=== PATIENT | female | born 1995 | race Caucasian/White ===

== ENCOUNTER 2017-07-09 01:02 | Outpatient (CLI) | payer SELFPAY ==
[~2017-07-09] VITALS: Ht 177.8 cm; Wt 101.7 kg
[2017-07-09 02:36] VITALS: BP 122/66
== END 2017-07-09 05:15 | disposition home or self-care (01) ==
LOC: M LDO 01:02
PROVIDERS: ATTEND Obstetrics & Gynecology
DX: O26.893 Other specified pregnancy related conditions, third trimester (principal); Z3A.29 29 weeks gestation of pregnancy; N89.8 Other specified noninflammatory disorders of vagina

== ENCOUNTER 2017-09-13 06:56 | Inpatient (IN) | payer BC, OTHER ==
[2017-09-13] VITALS (10 sets, daily range): BP systolic 110–131; BP diastolic 58–70
[~2017-09-13] VITALS: Ht 172.7 cm; Wt 104.3 kg
[~2017-09-13 06:56] MED LIST: PRENTAB55 PO
[2017-09-13] MEDS ORDERED: LACTATED RINGER'S 1000 ML IV ONE (07:00)
[2017-09-13] MEDS ORDERED: BICITRA 30ML SOLN UDC PO ONE (07:00)
[2017-09-13] MEDS ORDERED: LR 1,000 ML IV SCH ×2 (07:30→10:00)
[2017-09-13] MEDS ORDERED: CLINDAMYCIN 900 MG/50 ML PREMIX BAG As Ordered ONE (07:44)
[2017-09-13 07:45] LABS: MEAN CORPUSCULAR HGB CONC 34.1 g/dl (32.0-36.5); PLATELET COUNT, AUTOMATED 193 10^3/uL (150-450); WHITE BLOOD COUNT 8.5 10^3/uL (4.0-10.0)
[2017-09-13] MEDS ORDERED: GENTAMICIN 150 MG in D5W 50 ML IV ONE (08:00)
[2017-09-13] MEDS ORDERED: CLINDAMYCIN 600 MG in APPROPRIATE DILUENT 1 EA IV ONE (08:00)
[2017-09-13] MEDS ORDERED: CLINDAMYCIN 900 MG in APPROPRIATE DILUENT 1 EA IV ONE (08:00)
[2017-09-13] MEDS ORDERED: ONDANSETRON 4MG/2ML VIAL (J2405) IV PRN ×3 (08:49→10:00)
[2017-09-13] MEDS ORDERED: METOCLOPRAMIDE INJ 10MG/2ML VIAL (J2765) IV PRN ×2 (08:49→10:00)
[2017-09-13] MEDS ORDERED: NALOXONE INJ 0.4 MG/1 ML VIAL (J2310) IV PRN ×2 (08:49)
[2017-09-13] MEDS ORDERED: NALBUPHINE HCL 10 MG/ML AMP (J2300) IV PRN (08:49)
[2017-09-13] MEDS: PRENATAL VITAMINS CHEWABLE TABLET PO SCH (09:00)
[2017-09-13] MEDS ORDERED: MORPHINE PRES-FREE INJ 10 MG/10 ML VIAL (J2274) As Ordered ONE (09:20)
[2017-09-13] MEDS ORDERED: MIDAZOLAM INJ 2 MG/2 ML VIAL (J2250) As Ordered ONE (09:20)
[2017-09-13] MEDS ORDERED: KETOROLAC 60 MG/2 ML VIAL (J1885) As Ordered ONE (09:22)
[2017-09-13] MEDS ORDERED: ONDANSETRON 4MG/2ML VIAL (J2405) As Ordered ONE (09:22)
[2017-09-13] MEDS ORDERED: ePHEDrine SULFATE 25 MG/5 ML(5MG/ML) SYRINGE As Ordered ONE (09:22)
[2017-09-13] MEDS ORDERED: OXYTOCIN INJ 10 UNITS/ML VIAL (J2590) As Ordered ONE (09:22)
[2017-09-13] MEDS ORDERED: PHENYLephrine HCL 500 MCG/5 ML (100MCG/ML) SYRINGE (J2370) As Ordered ONE (09:22)
[2017-09-13] MEDS ORDERED: PERCOCET 5MG/325MG TAB PO PRN ×2 (09:45→10:00)
[2017-09-13] MEDS ORDERED: RHOGAM 300 MCG (1500 IU) INJ (J2790) IM SCH (10:00)
[2017-09-13] MEDS ORDERED: OXYTOCIN DRIP 30 UNITS in APPROPRIATE DILUENT 1 EA IV ONE (10:00)
[2017-09-13] MEDS ORDERED: fentaNYL 100 MCG/2 ML INJECTION (J3010) IV PRN (10:00)
[2017-09-13] MEDS: LR 1,000 ML IV SCH ×2 (10:00→18:00)
[2017-09-13] MEDS ORDERED: MEASLES,MUMPS,RUBELLA VACCINE INJ (MMR-II) (90707) SC SCH (10:00)
[2017-09-13] MEDS: KETOROLAC 30 MG/ML VIAL (J1885) IV SCH ×3 (16:00→23:57)
--- NOTE | 2017-09-13 17:34 | REP ---
LEFT BREAST ULTRASOUND: 09/13/2017 Clinical history: Palpable areas upper outer quadrant left breast from 1 - 2 o'clock position. The patient had a section this morning. Breasts are engorged and lumps were noted. After she breast fed they apparently disappeared and she now appears in the ultrasound suite for breast ultrasound. Sonographic evaluation of the area of concern in the 1 - 2-o'clock position upper outer quadrant left breast showed normal heterogeneous echogenic breast tissue without underlying mass, architectural distortion, cyst or other fluid collection. Some mildly dilated ducts are noted which are entirely appropriate. Impression: 1. No breast ultrasound abnormalities in the upper outer quadrant in the region where some lumps were noted at earlier today. Those lumps apparently disappeared when she breast fed. There is no underlying pathology or abnormality on ultrasound in the area of previous concern. Signed by Arnulfo Dueñas MD 09/13/2017 07:09 P
[2017-09-14 02:35] VITALS: BP 115/55
[2017-09-14] MEDS: KETOROLAC 30 MG/ML VIAL (J1885) IV SCH ×3 (03:38→10:27)
[2017-09-14 06:00] VITALS: BP 116/61
[2017-09-14 06:48] LABS: MEAN CORPUSCULAR HEMOGLOBIN 31.4 pg (27.0-33.0); MEAN CORPUSCULAR HGB CONC 33.2 g/dl (32.0-36.5); MEAN CORPUSCULAR VOLUME 94.5 fl (80.0-96.0); PLATELET COUNT, AUTOMATED 160 10^3/uL (150-450); RED CELL DISTRIBUTION WIDTH 12.9 % (11.5-14.5); WHITE BLOOD COUNT 8.7 10^3/uL (4.0-10.0)
[2017-09-14] MEDS ORDERED: ADACEL/BOOSTRIX VACCINE (DIPHTH/PERTUSS/ACELL/TETANUS)0.5ML SYR (90715) IM ONE (09:00)
[2017-09-14] MEDS ORDERED: INFLUENZA QUADRIVALENT PF VACCINE 0.5ML SYRINGE (90686) IM ONE (09:00)
[2017-09-14] MEDS: PRENATAL VITAMINS CHEWABLE TABLET PO SCH (09:11)
[2017-09-14 10:00] VITALS: BP 116/59
[2017-09-14] MEDS: DOCUSATE SODIUM 100 MG CAP PO SCH ×2 (10:27→20:36)
[2017-09-14] MEDS: SIMETHICONE 80 MG CHEW TAB PO PRN ×2 (10:28→16:01)
[2017-09-14] MEDS: IBUPROFEN 800 MG TAB PO SCH ×2 (11:42→19:50)
--- NOTE | 2017-09-14 12:07 | RO ---
DATE OF OPERATION: 09/13/2017 PREOPERATIVE DIAGNOSES: 39 weeks, prior (C) section times two. POSTOPERATIVE DIAGNOSES: 39 weeks, prior section times two. PROCEDURE: Repeat low transverse section. SURGEON: Kevin Strickland MD ALCOHOL RUBBER: Juju Pierre ANESTHESIA: Spinal. ESTIMATED BLOOD LOSS: 500 mL. URINE OUTPUT: 100 mL. INTRAVENOUS (IV) FLUIDS: 1855 mL. FINDINGS: 3250-gram or 7-pound 3-ounce female , scores 7 and 8, in the vertex position. 4 cm peritoneal window in the lower uterine segment with no myometrium present. Normal fallopian tubes and ovaries. DESCRIPTION OF PROCEDURE: Operative summary: The patient taken the operating room, where spinal anesthesia was induced. She was prepped and draped in sterile fashion in the supine position. A Marlow catheter was placed. A Pfannenstiel skin incision was made with the scalpel and carried through to the fascia. The fascia was nicked and extended. The fascia was dissected off the rectus muscles. The peritoneum was entered. A 4 cm x 4 cm peritoneal window was quickly noted in the lower uterine segment. The fetus could be seen through this window. There was no myometrium present. The window was opened, and the uterine incision was extended. Clear fluid was noted. The was delivered from the vertex position without difficulty. The cord was doubly clamped and cut. The was handed off to the awaiting nurses. The placenta was expressed. The uterus was exteriorized and cleared of clots and debris. The uterine incision was closed with 0 Vicryl in a running locked fashion. Two figure-of-8 sutures were placed for hemostasis. Due to the extremely thin nature of the lower uterine segment, it was not possible to place a second layer in the hysterotomy incision. The uterus was placed back into the abdominal cavity. The peritoneum was closed with 2-0 Vicryl in a running fashion. The fascia was closed with 0 Vicryl in a running fashion. The deep layer was irrigated and closed with 2-0 chromic. The skin was closed with 4-0 Monocryl subcuticular sutures. Sponge, instrument, and needle counts were correct.
[2017-09-14 14:00] VITALS: BP 111/64
[2017-09-14] MEDS ORDERED: OXYC1TAB23 PO (15:46)
[2017-09-14] MEDS: PERCOCET 5MG/325MG TAB PO PRN ×2 (16:01→20:36)
[2017-09-14 18:00] VITALS: BP 120/65
[2017-09-14 22:03] VITALS: BP 132/56
[2017-09-15] MEDS: IBUPROFEN 800 MG TAB PO SCH (03:25)
[2017-09-15 03:30] VITALS: BP 128/72
[2017-09-15] MEDS: PERCOCET 5MG/325MG TAB PO PRN ×2 (04:06→09:25)
[2017-09-15 06:25] VITALS: BP 121/59
[2017-09-15] MEDS ORDERED: ADACEL/BOOSTRIX VACCINE (DIPHTH/PERTUSS/ACELL/TETANUS)0.5ML SYR (90715) IM ONE (09:00)
[2017-09-15] MEDS ORDERED: INFLUENZA QUADRIVALENT PF VACCINE 0.5ML SYRINGE (90686) IM ONE (09:00)
[2017-09-15] MEDS: PRENATAL VITAMINS CHEWABLE TABLET PO SCH (09:25)
[2017-09-15] MEDS: DOCUSATE SODIUM 100 MG CAP PO SCH (09:25)
[2017-09-15] MEDS ORDERED: IBUP-1114 PO (09:27)
--- NOTE | 2017-09-16 10:22 | DSES ---
DATE OF ADMISSION: 09/13/2017 DATE OF DISCHARGE: 09/15/2017 HISTORY: 22-year-old 3, para 2 female at 39 and 0/7 weeks gestation, who presents for repeat section. course was unremarkable. She has had two prior sections. HOSPITAL COURSE: The patient was admitted on 09/13/2017 for scheduled section. The procedure was without complication for a 7 pounds 3 ounce female . Of note, a 4 cm x 4 cm peritoneal window was noted in the lower uterine segment at the time of surgery. Her postoperative course was unremarkable. She had adequate return of bladder and bowel function. She was deemed stable for discharge on postoperative day #2. ADMISSION DIAGNOSIS: 1. at term. 2. Prior section times two. DISCHARGE DIAGNOSIS: Delivered. PROCEDURE: Repeat low transverse section. DISPOSITION: The patient is to followup with Dr. Strickland in 2 weeks. Instructions reviewed.
== END 2017-09-15 12:40 | disposition home or self-care (01) | DRG 540 ==
LOC: M LDI 06:56 → M OBS 11:28
PROVIDERS: ADMIT Specialist; ATTEND Specialist
PROC: 10D00Z1 Extraction of Products of Conception, Low, Open Approach (ICD-10-PCS; principal; 2017-09-13 08:30)
DX: O34.211 Maternal care for low transverse scar from previous cesarean delivery (principal); Z37.0 Single live birth; Z3A.39 39 weeks gestation of pregnancy

== ENCOUNTER 2017-09-18 22:55 | Emergency (ER) | payer BC, OTHER ==
[~2017-09-18] VITALS: Ht 172.7 cm; Wt 100.0 kg
[~2017-09-18 22:55] MED LIST changes: +IBUP-1114 PO; +OXYC1TAB23 PO
[2017-09-19 00:43] VITALS: BP 131/78
== END 2017-09-19 00:59 | disposition home or self-care (01) ==
LOC: M ED 22:55
DX: Z48.89 Encounter for other specified surgical aftercare (principal); Z88.1 Allergy status to other antibiotic agents

== ENCOUNTER → 2017-09-20 | Outpatient (REF) | payer OTHER | LOC: M LAB REF 12:55 | PROVIDERS: ATTEND Obstetrics & Gynecology | DX: R30.0 Dysuria (principal) ==

== ENCOUNTER 2018-10-26 21:39 | Emergency (ER) | payer BC, OTHER ==
[~2018-10-26] VITALS: Ht 175.3 cm; Wt 90.0 kg
[2018-10-26 22:30] LABS: BASO % 0.4 % (0.0-1.0); EOS # 0.1 10^3/uL (0.0-0.50); EOS % 1.4 % (0.0-3.0); HEMATOCRIT 39.5 % (36.0-47.0); LYMPH # 2.4 10^3/uL (1.5-6.5); LYMPH % 48.2 % (24.0-44.0); MEAN CORPUSCULAR HEMOGLOBIN 30.1 pg (27.0-33.0); MEAN CORPUSCULAR HGB CONC 32.9 g/dl (32.0-36.5); MEAN CORPUSCULAR VOLUME 91.4 fl (80.0-96.0); MONO # 0.4 10^3/uL (0.0-0.8); MONO % 7.1 % (0.0-5.0); NEUTROPHILS # 2.1 10^3/uL (1.8-7.7); NEUTROPHILS % 42.7 % (36.0-66.0); PLATELET COUNT, AUTOMATED 216 10^3/uL (150-450); RED BLOOD COUNT 4.32 10^6/uL (4.00-5.40)
[2018-10-26 22:52] LABS: BLOOD UREA NITROGEN 16 MG/DL (7-18); CALCIUM LEVEL 8.6 MG/DL (8.5-10.1); CARBON DIOXIDE LEVEL 22 MEQ/L (21-32); CHLORIDE LEVEL 109 MEQ/L (98-107); CPK CREATINE PHOSPHOKINASE 183 U/L (26-192); CREATININE FOR GFR 0.97 MG/DL (0.55-1.30); GLOMERULAR FILTRATION RATE > 60.0 (>60); GLUCOSE, FASTING 79 MG/DL (70-100); MB/CK RELATIVE INDEX 0.98 (< OR =4); POTASSIUM SERUM 3.8 MEQ/L (3.5-5.1); SODIUM LEVEL 141 MEQ/L (136-145); TROPONIN I < 0.02 NG/ML (< 0.10)
[2018-10-26] MEDS ORDERED: KETOROLAC 30 MG/ML VIAL (J1885) IV ONE (23:00)
[2018-10-26] MEDS ORDERED: ALBUTEROL 90 MCG/ACT 8GM HFA INHALER INH ONE (23:15)
[2018-10-27 00:04] VITALS: BP 117/58
--- NOTE | 2018-10-27 03:50 | REP ---
Clinical: Acute left chest pain . Comparison: None . Technique: PA and lateral. Findings: The mediastinum and cardiac silhouette are normal. The lung fuentes are clear and without acute consolidation, effusion, or pneumothorax. The skeletal structures are intact and normal. Impression: 1. No acute cardiopulmonary process. Electronically Signed by Nick Camlio MD 10/27/2018 03:41 A
--- NOTE | 2018-10-27 06:36 | ECGEPIP ---
Stationary ECG Study 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
== END 2018-10-27 00:08 | disposition home or self-care (01) ==
LOC: M ED 21:39
DX: J98.01 Acute bronchospasm (principal); F41.9 Anxiety disorder, unspecified; F33.9 Major depressive disorder, recurrent, unspecified; N80.9 Endometriosis, unspecified; Z88.1 Allergy status to other antibiotic agents